=== PATIENT | female | born 1990 | race African-American/Black ===

== ENCOUNTER 2022-05-09 21:01 | Inpatient (IN) | payer MEDICAID, OTHER ==
[~2022-05-09] VITALS: Ht 165.1 cm; Wt 125.6 kg
[~2022-05-09 21:01] MED LIST: PNV
[2022-05-09 23:11] LABS: BASOPHILS % (AUTO) 0.8 % (0.0-2.0); EOSINOPHILS % (AUTO) 1.4 % (1.0-6.0); HEMATOCRIT 44.4 % (36-46); HEMOGLOBIN 14.2 g/dL (12.0-16.0); LYMPHOCYTES # (AUTO) 1.9 K/uL (1.0-4.8); LYMPHOCYTES % (AUTO) 37.1 % (22.0-44.0); MEAN CORPUSCULAR HEMOGLOBIN 25.2 pg (26.0-34.0); MEAN CORPUSCULAR HGB CONC 31.9 G/dL (31.0-37.0); MEAN CORPUSCULAR VOLUME 79 fL (80-100); MONOCYTES # (AUTO) 0.4 K/uL (0.1-1.0); NEUTROPHILS # (AUTO) 2.7 K/uL (1.8-7.7); NEUTROPHILS % (AUTO) 52.7 % (40.0-70.0); PLATELET COUNT (AUTO) 382 K/uL (150-450); RED BLOOD CELL COUNT(AUTO) 5.62 MIL/uL (4.00-5.20); RED CELL DISTRIBUTION WIDTH 17.2 % (11.5-14.5)
[2022-05-09 23:14] LABS: COVID AG,FIA SOURCE NASAL SWAB
[2022-05-09 23:20] LABS: ANION GAP 10 mmol/L (8-16); CALCIUM, TOTAL 9.3 mg/dL (8.8-10.5); CARBON DIOXIDE 27 mmol/L (22-29); CHLORIDE 105 mmol/L (98-107); CREATININE 0.81 mg/dL (0.60-1.30); GLUCOSE,RANDOM 115 mg/dL (70-110); POTASSIUM 3.3 mmol/L (3.5-5.1); SODIUM SERUM 142 mmol/L (136-145); UREA NITROGEN, BLOOD 10 mg/dL (7-18)
[2022-05-09 23:21] LABS: GLOMERULAR FILTR. RATE CALC > 60 mL/min (>60)
[2022-05-09 23:29] LABS: B-TYPE NATRIURETIC PEPTIDE 312 pg/mL (0-100)
[2022-05-09 23:37] LABS: ALANINE AMINOTRANSFERASE 34 U/L (12-78); ALBUMIN 2.6 g/dL (3.4-5.0); ALKALINE PHOSPHATASE 221 U/L (46-116); ASPARTATE AMINOTRANSFERASE 34 U/L (15-37); BILIRUBIN,TOTAL 1.4 mg/dL (0.1-1.0); HCG,QUANTITATIVE < 1 mIU/mL (0-6); TOTAL PROTEIN, SERUM 6.8 g/dL (6.4-8.2)
[2022-05-10] MEDS ORDERED: LABETALOL HCL 5 MG/ML 20 ML VIAL IVP ONE
[2022-05-10] MEDS ORDERED: NITROGLYCERIN 2% (1 GM=INCH) PACKET TP ONE
[2022-05-10] MEDS ORDERED: IOHEXOL 350 MG/ML 150 ML VIAL ONE (00:01)
[2022-05-10] MEDS ORDERED: SODIUM CHLORIDE 0.9% 0 ML ONE (00:01)
[2022-05-10] MEDS ORDERED: POTASSIUM CHLORIDE 20 MEQ ER TABLET PO ONE (00:15)
[2022-05-10] MEDS ORDERED: ACETAMINOPHEN 325 MG TABLET PO PRN (00:30)
[2022-05-10] MEDS ORDERED: ONDANSETRON HCL 4 MG/2 ML VIAL IVP PRN (00:30)
[2022-05-10] MEDS ORDERED: POTASSIUM CHLORIDE 10% 40 MEQ/30 ML LIQUID UDCUP PO ONE (00:30)
[2022-05-10] MEDS ORDERED: LORazepam 2 MG TABLET PO PRN (00:30)
[2022-05-10] MEDS: NiCARDipine HCL 25 MG in DEXTROSE 5%-WATER 240 ML IV PRN ×3 (01:55→20:45)
[2022-05-10 04:00] VITALS: BP 141/78
[2022-05-10 08:00] VITALS: BP 142/75
[2022-05-10] MEDS ORDERED: CARVEDILOL 3.125 MG TABLET PO SCH (09:00)
[2022-05-10] MEDS ORDERED: ETHYL ALCOHOL 62% ANTISEPTIC NASAL SANITIZER 0.6 ML AMPUL NASAL SCH (09:00)
[2022-05-10] MEDS ORDERED: POTASSIUM CHL 10 MEQ/WATER 50 ML IV PRN (09:00)
[2022-05-10] MEDS: MULTIVITAMINS WITH MINERALS, THERAPEUTIC TABLET PO SCH (09:03)
[2022-05-10] MEDS: ETHYL ALCOHOL 62% ANTISEPTIC NASAL SANITIZER 0.6 ML AMPUL NASAL SCH ×2 (09:04→20:44)
[2022-05-10] MEDS ORDERED: FUROSEMIDE 40 MG/4 ML VIAL IVP ONE ×2 (10:45)
[2022-05-10] MEDS ORDERED: IOHEXOL 350 MG/ML 100 ML VIAL ONE (10:49)
[2022-05-10] MEDS ORDERED: SODIUM CHLORIDE 0.9% 100 ML ONE (10:49)
[2022-05-10] MEDS: HEPARIN SODIUM,PORCINE 5,000 UNITS/ML VIAL SQ SCH (11:13)
[2022-05-10 12:00] VITALS: BP 132/72
[2022-05-10 12:36] LABS: BILIRUBIN,URINE NEGATIVE (NEGATIVE); GLUCOSE, URINE (UA) TRACE mg/dL (NEGATIVE); KETONES,URINE NEGATIVE (NEGATIVE); LEUKOCYTE ESTERASE ,URINE MODERATE (NEGATIVE); NITRATE,URINE NEGATIVE (NEGATIVE); OCCULT BLOOD,URINE SMALL (NEGATIVE); PROTEIN,URINE 30-70 mg/dL (NEGATIVE); SPECIFIC GRAVITIY, URINE 1.014 (1.003-1.030); UROBILINOGEN,URINE <=1.0 mg/dL (<=1.0)
[2022-05-10 12:39] LABS: APPEARANCE,URINE HAZY (CLEAR)
[2022-05-10 12:40] LABS: BACTERIA,URINE Few /HPF (None Seen)
[2022-05-10 12:49] LABS: AMPHET/METH SCREEN,URINE NEGATIVE (NEGATIVE); BARBITURATE SCREEN, URINE NEGATIVE (NEGATIVE); BENZODIAZEPINES SCREEN,URINE NEGATIVE (NEGATIVE); CANNABINOID SCREEN,URINE NEGATIVE (NEGATIVE); COCAINE SCREEN,URINE NEGATIVE (NEGATIVE); METHADONE SCREEN, URINE NEGATIVE (NEGATIVE); OPIATE SCREEN,URINE NEGATIVE (NEGATIVE)
[2022-05-10 12:58] LABS: PHENCYCLIDINE SCREEN,URINE NEGATIVE (NEGATIVE)
[2022-05-10 16:00] VITALS: BP 162/73
[2022-05-10 20:00] VITALS: BP 157/101
[2022-05-10] MEDS: PIPERACILLIN/TAZO 3.375 GM/D5W 50 ML IV SCH (20:44)
[2022-05-10] MEDS: CARVEDILOL 6.25 MG TABLET PO SCH (20:44)
[2022-05-10] MEDS ORDERED: SODIUM CHLORIDE 0.9% 250 ML IV ONE (21:09)
[2022-05-11] VITALS: BP 130/74
[2022-05-11] MEDS: HEPARIN SODIUM,PORCINE 5,000 UNITS/ML VIAL SQ SCH ×3 (00:33→16:25)
[2022-05-11] MEDS: NiCARDipine HCL 25 MG in DEXTROSE 5%-WATER 240 ML IV PRN (00:49)
[2022-05-11] MEDS: PIPERACILLIN/TAZO 3.375 GM/D5W 50 ML IV SCH ×4 (02:33→20:40)
[2022-05-11 04:00] VITALS: BP 139/78
[2022-05-11] MEDS ORDERED: LORazepam 2 MG TABLET PO PRN (07:00)
[2022-05-11 08:00] VITALS: BP 137/90
[2022-05-11 08:10] LABS: BASOPHILS % (AUTO) 1.3 % (0.0-2.0); EOSINOPHILS % (AUTO) 1.4 % (1.0-6.0); HEMATOCRIT 39.5 % (36-46); HEMOGLOBIN 12.9 g/dL (12.0-16.0); LYMPHOCYTES # (AUTO) 1.8 K/uL (1.0-4.8); LYMPHOCYTES % (AUTO) 36.1 % (22.0-44.0); MEAN CORPUSCULAR HEMOGLOBIN 25.5 pg (26.0-34.0); MEAN CORPUSCULAR HGB CONC 32.6 G/dL (31.0-37.0); MEAN CORPUSCULAR VOLUME 78 fL (80-100); MONOCYTES # (AUTO) 0.5 K/uL (0.1-1.0); MONOCYTES % (AUTO) 8.9 % (2.0-9.0); NEUTROPHILS # (AUTO) 2.7 K/uL (1.8-7.7); NEUTROPHILS % (AUTO) 52.3 % (40.0-70.0); PLATELET COUNT (AUTO) 366 K/uL (150-450); RED BLOOD CELL COUNT(AUTO) 5.06 MIL/uL (4.00-5.20); RED CELL DISTRIBUTION WIDTH 16.4 % (11.5-14.5)
[2022-05-11 08:30] LABS: ALANINE AMINOTRANSFERASE 28 U/L (12-78); ALBUMIN 2.3 g/dL (3.4-5.0); ALKALINE PHOSPHATASE 181 U/L (46-116); ANION GAP 11 mmol/L (8-16); ASPARTATE AMINOTRANSFERASE 31 U/L (15-37); BILIRUBIN,TOTAL 1.5 mg/dL (0.1-1.0); CALCIUM, TOTAL 8.9 mg/dL (8.8-10.5); CARBON DIOXIDE 25 mmol/L (22-29); CHLORIDE 103 mmol/L (98-107); CREATININE 0.82 mg/dL (0.60-1.30); GLUCOSE,RANDOM 135 mg/dL (70-110); PHOSPHORUS 4.1 mg/dL (2.5-4.9); POTASSIUM 3.5 mmol/L (3.5-5.1); SODIUM SERUM 139 mmol/L (136-145); TOTAL PROTEIN, SERUM 6.2 g/dL (6.4-8.2); UREA NITROGEN, BLOOD 12 mg/dL (7-18)
[2022-05-11 08:32] LABS: GLOMERULAR FILTR. RATE CALC > 60 mL/min (>60)
[2022-05-11] MEDS: CARVEDILOL 6.25 MG TABLET PO SCH ×2 (08:55→20:41)
[2022-05-11] MEDS: ETHYL ALCOHOL 62% ANTISEPTIC NASAL SANITIZER 0.6 ML AMPUL NASAL SCH ×2 (08:55→20:41)
[2022-05-11] MEDS: MULTIVITAMINS WITH MINERALS, THERAPEUTIC TABLET PO SCH (08:55)
[2022-05-11] MEDS: LORazepam 2 MG TABLET PO SCH ×4 (08:55→20:41)
[2022-05-11] MEDS: POTASSIUM CHLORIDE 20 MEQ ER TABLET PO PRN (08:55)
[2022-05-11] MEDS ORDERED: MEBROFENIN TC99M/MCL ISOTOPE 1 EA INJ INJ ONE (10:25)
[2022-05-11] MEDS: FUROSEMIDE 40 MG/4 ML VIAL IVP SCH ×2 (11:20→20:40)
[2022-05-11] MEDS: AmLODIPine BESYLATE 5 MG TABLET PO SCH (11:20)
[2022-05-11] MEDS: MORPHINE SULFATE 2 MG/ML SYRINGE IVP ONE ×2 (11:21→11:26)
[2022-05-11 12:00] VITALS: BP 149/87
[2022-05-11] MEDS ORDERED: PERFLUTREN PROTEIN-A MICROSPHERES 0.22 MG/ML 3 ML VIAL IVP ONE (12:30)
[2022-05-11 16:00] VITALS: BP 155/75
[2022-05-11 21:45] VITALS: BP 155/111
[2022-05-12] VITALS (7 sets, daily range): BP systolic 109–174; BP diastolic 76–109
[2022-05-12] MEDS: HEPARIN SODIUM,PORCINE 5,000 UNITS/ML VIAL SQ SCH ×3 (00:52→16:16)
[2022-05-12] MEDS: PIPERACILLIN/TAZO 3.375 GM/D5W 50 ML IV SCH ×4 (02:01→20:56)
[2022-05-12 05:43] LABS: BASOPHILS % (AUTO) 0.7 % (0.0-2.0); HEMATOCRIT 39.8 % (36-46); HEMOGLOBIN 13.1 g/dL (12.0-16.0); LYMPHOCYTES # (AUTO) 1.6 K/uL (1.0-4.8); LYMPHOCYTES % (AUTO) 33.1 % (22.0-44.0); MEAN CORPUSCULAR HEMOGLOBIN 25.6 pg (26.0-34.0); MEAN CORPUSCULAR HGB CONC 32.8 G/dL (31.0-37.0); MEAN CORPUSCULAR VOLUME 78 fL (80-100); MONOCYTES # (AUTO) 0.5 K/uL (0.1-1.0); MONOCYTES % (AUTO) 9.9 % (2.0-9.0); NEUTROPHILS # (AUTO) 2.6 K/uL (1.8-7.7); NEUTROPHILS % (AUTO) 54.3 % (40.0-70.0); PLATELET COUNT (AUTO) 334 K/uL (150-450); RED CELL DISTRIBUTION WIDTH 16.6 % (11.5-14.5)
[2022-05-12 06:05] LABS: ALANINE AMINOTRANSFERASE 33 U/L (12-78); ALBUMIN 2.3 g/dL (3.4-5.0); ALKALINE PHOSPHATASE 202 U/L (46-116); ANION GAP 13 mmol/L (8-16); ASPARTATE AMINOTRANSFERASE 33 U/L (15-37); BILIRUBIN,TOTAL 1.4 mg/dL (0.1-1.0); CALCIUM, TOTAL 9.2 mg/dL (8.8-10.5); CARBON DIOXIDE 27 mmol/L (22-29); CHLORIDE 102 mmol/L (98-107); CREATININE 0.97 mg/dL (0.60-1.30); GLUCOSE,RANDOM 119 mg/dL (70-110); POTASSIUM 3.4 mmol/L (3.5-5.1); SODIUM SERUM 142 mmol/L (136-145); TOTAL PROTEIN, SERUM 6.4 g/dL (6.4-8.2); UREA NITROGEN, BLOOD 13 mg/dL (7-18)
[2022-05-12 06:08] LABS: GLOMERULAR FILTR. RATE CALC > 60 mL/min (>60)
[2022-05-12] MEDS: FUROSEMIDE 40 MG/4 ML VIAL IVP SCH ×2 (08:57→20:56)
[2022-05-12] MEDS: ETHYL ALCOHOL 62% ANTISEPTIC NASAL SANITIZER 0.6 ML AMPUL NASAL SCH ×2 (08:57→20:56)
[2022-05-12] MEDS: AmLODIPine BESYLATE 5 MG TABLET PO SCH (08:57)
[2022-05-12] MEDS: MULTIVITAMINS WITH MINERALS, THERAPEUTIC TABLET PO SCH (08:57)
[2022-05-12] MEDS: CARVEDILOL 12.5 MG TABLET PO SCH ×2 (08:57→20:56)
[2022-05-12] MEDS: LORazepam 2 MG TABLET PO SCH ×4 (08:57→20:56)
[2022-05-12] MEDS: LOSARTAN POTASSIUM 25 MG TABLET PO SCH (08:58)
[2022-05-12] MEDS: POTASSIUM CHLORIDE 20 MEQ ER TABLET PO PRN (12:57)
[2022-05-12] MEDS ORDERED: SODIUM CHLORIDE 0.9% 250 ML IV ONE (20:25)
[2022-05-13 00:22] VITALS: BP 172/117
[2022-05-13] MEDS: HydrALAZINE HCL 20 MG/ML VIAL IVP PRN ×2 (00:35→14:09)
[2022-05-13] MEDS: PIPERACILLIN/TAZO 3.375 GM/D5W 50 ML IV SCH ×4 (02:00→20:43)
[2022-05-13 04:42] VITALS: BP 148/103
[2022-05-13] MEDS ORDERED: LORazepam 1 MG TABLET PO PRN ×2 (07:00→13:00)
[2022-05-13] MEDS ORDERED: LORazepam 1 MG TABLET PO SCH (09:00)
[2022-05-13] MEDS: FUROSEMIDE 40 MG/4 ML VIAL IVP SCH ×2 (10:01→20:43)
[2022-05-13] MEDS: CARVEDILOL 12.5 MG TABLET PO SCH ×2 (10:01→20:43)
[2022-05-13] MEDS: AmLODIPine BESYLATE 5 MG TABLET PO SCH (10:01)
[2022-05-13] MEDS: MULTIVITAMINS WITH MINERALS, THERAPEUTIC TABLET PO SCH (10:01)
[2022-05-13] MEDS: LOSARTAN POTASSIUM 25 MG TABLET PO SCH (10:02)
[2022-05-13 10:04] VITALS: BP 134/95
[2022-05-13] MEDS: HEPARIN SODIUM,PORCINE 5,000 UNITS/ML VIAL SQ SCH ×3 (10:08→16:00)
[2022-05-13] MEDS: ETHYL ALCOHOL 62% ANTISEPTIC NASAL SANITIZER 0.6 ML AMPUL NASAL SCH ×2 (10:22→20:43)
[2022-05-13 13:11] VITALS: BP 184/100
[2022-05-13 16:04] VITALS: BP 141/68
[2022-05-13 20:52] VITALS: BP 125/67
[2022-05-14 01:06] VITALS: BP 139/85
[2022-05-14] MEDS: PIPERACILLIN/TAZO 3.375 GM/D5W 50 ML IV SCH ×4 (02:47→20:33)
[2022-05-14 05:30] VITALS: BP 149/93
[2022-05-14] MEDS ORDERED: LORazepam 1 MG TABLET PO PRN (07:00)
[2022-05-14 08:13] VITALS: BP 173/86
[2022-05-14] MEDS: AmLODIPine BESYLATE 5 MG TABLET PO SCH (08:16)
[2022-05-14] MEDS: LOSARTAN POTASSIUM 25 MG TABLET PO SCH (08:16)
[2022-05-14] MEDS: CARVEDILOL 12.5 MG TABLET PO SCH ×2 (08:16→20:34)
[2022-05-14] MEDS: MULTIVITAMINS WITH MINERALS, THERAPEUTIC TABLET PO SCH (08:16)
[2022-05-14] MEDS: HEPARIN SODIUM,PORCINE 5,000 UNITS/ML VIAL SQ SCH ×4 (08:16→23:57)
[2022-05-14] MEDS: FUROSEMIDE 40 MG/4 ML VIAL IVP SCH ×2 (08:17→20:34)
[2022-05-14] MEDS ORDERED: ChlordiazePOXIDE HCL 10 MG CAPSULE PO SCH ×2 (09:00→21:00)
[2022-05-14 09:03] VITALS: BP 133/82
[2022-05-14] MEDS: ETHYL ALCOHOL 62% ANTISEPTIC NASAL SANITIZER 0.6 ML AMPUL NASAL SCH ×2 (09:17→20:34)
[2022-05-14 12:00] VITALS: BP 142/80
[2022-05-14 20:45] VITALS: BP 156/119
[2022-05-15] MEDS ORDERED: SODIUM CHLORIDE 0.9% 500 ML IV ONE (02:24)
[2022-05-15] MEDS: PIPERACILLIN/TAZO 3.375 GM/D5W 50 ML IV SCH ×4 (02:37→20:23)
[2022-05-15 04:11] VITALS: BP 146/93
[2022-05-15 06:39] LABS: ANION GAP 11 mmol/L (8-16); CALCIUM, TOTAL 9.2 mg/dL (8.8-10.5); CARBON DIOXIDE 27 mmol/L (22-29); CHLORIDE 101 mmol/L (98-107); CREATININE 1.01 mg/dL (0.60-1.30); GLUCOSE,RANDOM 111 mg/dL (70-110); POTASSIUM 3.5 mmol/L (3.5-5.1); SODIUM SERUM 139 mmol/L (136-145); UREA NITROGEN, BLOOD 17 mg/dL (7-18)
[2022-05-15 06:48] LABS: GLOMERULAR FILTR. RATE CALC > 60 mL/min (>60)
[2022-05-15 07:14] VITALS: BP 163/90
[2022-05-15] MEDS: CARVEDILOL 12.5 MG TABLET PO SCH ×2 (08:08→20:22)
[2022-05-15] MEDS: HEPARIN SODIUM,PORCINE 5,000 UNITS/ML VIAL SQ SCH ×3 (08:09→23:53)
[2022-05-15] MEDS: MULTIVITAMINS WITH MINERALS, THERAPEUTIC TABLET PO SCH (08:09)
[2022-05-15] MEDS: FUROSEMIDE 40 MG/4 ML VIAL IVP SCH ×2 (08:10→20:23)
[2022-05-15] MEDS: AmLODIPine BESYLATE 5 MG TABLET PO SCH (08:10)
[2022-05-15] MEDS: LOSARTAN POTASSIUM 25 MG TABLET PO SCH (08:16)
[2022-05-15 09:24] LABS: BASOPHILS % (AUTO) 1.1 % (0.0-2.0); EOSINOPHILS % (AUTO) 2.3 % (1.0-6.0); HEMATOCRIT 39.3 % (36-46); HEMOGLOBIN 12.9 g/dL (12.0-16.0); LYMPHOCYTES # (AUTO) 1.7 K/uL (1.0-4.8); LYMPHOCYTES % (AUTO) 30.9 % (22.0-44.0); MEAN CORPUSCULAR HEMOGLOBIN 25.6 pg (26.0-34.0); MEAN CORPUSCULAR HGB CONC 32.9 G/dL (31.0-37.0); MEAN CORPUSCULAR VOLUME 78 fL (80-100); MONOCYTES # (AUTO) 0.8 K/uL (0.1-1.0); MONOCYTES % (AUTO) 13.4 % (2.0-9.0); NEUTROPHILS # (AUTO) 2.9 K/uL (1.8-7.7); NEUTROPHILS % (AUTO) 52.3 % (40.0-70.0); PLATELET COUNT (AUTO) 327 K/uL (150-450); RED BLOOD CELL COUNT(AUTO) 5.05 MIL/uL (4.00-5.20); RED CELL DISTRIBUTION WIDTH 16.1 % (11.5-14.5)
[2022-05-15] MEDS: ETHYL ALCOHOL 62% ANTISEPTIC NASAL SANITIZER 0.6 ML AMPUL NASAL SCH ×2 (09:49→20:22)
[2022-05-15 11:30] VITALS: BP 132/89
[2022-05-15 16:12] VITALS: BP 138/97
[2022-05-15 20:13] VITALS: BP 150/102
[2022-05-15 23:58] VITALS: BP 150/101
[2022-05-16] MEDS: PIPERACILLIN/TAZO 3.375 GM/D5W 50 ML IV SCH ×4 (02:26→20:12)
[2022-05-16 05:11] VITALS: BP 153/96
[2022-05-16 06:36] LABS: BASOPHILS % (AUTO) 1.2 % (0.0-2.0); HEMATOCRIT 38.6 % (36-46); HEMOGLOBIN 12.6 g/dL (12.0-16.0); LYMPHOCYTES # (AUTO) 1.5 K/uL (1.0-4.8); LYMPHOCYTES % (AUTO) 29.2 % (22.0-44.0); MEAN CORPUSCULAR HEMOGLOBIN 25.5 pg (26.0-34.0); MEAN CORPUSCULAR HGB CONC 32.6 G/dL (31.0-37.0); MEAN CORPUSCULAR VOLUME 78 fL (80-100); MONOCYTES # (AUTO) 0.6 K/uL (0.1-1.0); MONOCYTES % (AUTO) 12.1 % (2.0-9.0); NEUTROPHILS # (AUTO) 2.9 K/uL (1.8-7.7); NEUTROPHILS % (AUTO) 55.5 % (40.0-70.0); PLATELET COUNT (AUTO) 326 K/uL (150-450); RED BLOOD CELL COUNT(AUTO) 4.93 MIL/uL (4.00-5.20); RED CELL DISTRIBUTION WIDTH 16.4 % (11.5-14.5)
[2022-05-16 06:54] LABS: ANION GAP 11 mmol/L (8-16); CARBON DIOXIDE 28 mmol/L (22-29); CHLORIDE 100 mmol/L (98-107); CREATININE 0.97 mg/dL (0.60-1.30); GLUCOSE,RANDOM 118 mg/dL (70-110); SODIUM SERUM 139 mmol/L (136-145); UREA NITROGEN, BLOOD 14 mg/dL (7-18)
[2022-05-16 06:55] LABS: GLOMERULAR FILTR. RATE CALC > 60 mL/min (>60)
[2022-05-16 07:43] VITALS: BP 144/86
[2022-05-16] MEDS ORDERED: SODIUM CHLORIDE 0.9% 250 ML IV ONE (08:34)
[2022-05-16] MEDS: FUROSEMIDE 40 MG/4 ML VIAL IVP SCH ×2 (09:08→20:10)
[2022-05-16] MEDS: HEPARIN SODIUM,PORCINE 5,000 UNITS/ML VIAL SQ SCH ×2 (09:08→15:19)
[2022-05-16] MEDS: ETHYL ALCOHOL 62% ANTISEPTIC NASAL SANITIZER 0.6 ML AMPUL NASAL SCH ×2 (09:08→20:11)
[2022-05-16] MEDS: CARVEDILOL 12.5 MG TABLET PO SCH (09:08)
[2022-05-16] MEDS: MULTIVITAMINS WITH MINERALS, THERAPEUTIC TABLET PO SCH (09:09)
[2022-05-16] MEDS: AmLODIPine BESYLATE 5 MG TABLET PO SCH (09:09)
[2022-05-16] MEDS: LOSARTAN POTASSIUM 25 MG TABLET PO SCH (09:09)
[2022-05-16] MEDS: POTASSIUM CHLORIDE 20 MEQ ER TABLET PO PRN ×2 (09:10→17:01)
[2022-05-16 11:18] VITALS: BP 139/86
[2022-05-16 15:36] VITALS: BP 136/109
[2022-05-16] MEDS: SPIRONOLACTONE 25 MG TABLET PO SCH (17:01)
[2022-05-16 20:10] VITALS: BP 144/96
[2022-05-16] MEDS: CARVEDILOL 25 MG TABLET PO SCH (20:11)
[2022-05-16 23:30] VITALS: BP 153/95
[2022-05-17] MEDS: HEPARIN SODIUM,PORCINE 5,000 UNITS/ML VIAL SQ SCH ×3 (00:54→16:00)
[2022-05-17] MEDS: PIPERACILLIN/TAZO 3.375 GM/D5W 50 ML IV SCH ×3 (01:00→14:00)
[2022-05-17 03:30] VITALS: BP 144/77
[2022-05-17 06:02] LABS: BASOPHILS % (AUTO) 1.1 % (0.0-2.0); EOSINOPHILS % (AUTO) 1.8 % (1.0-6.0); HEMATOCRIT 37.9 % (36-46); HEMOGLOBIN 12.3 g/dL (12.0-16.0); LYMPHOCYTES # (AUTO) 1.5 K/uL (1.0-4.8); LYMPHOCYTES % (AUTO) 27.7 % (22.0-44.0); MEAN CORPUSCULAR HEMOGLOBIN 25.3 pg (26.0-34.0); MEAN CORPUSCULAR HGB CONC 32.4 G/dL (31.0-37.0); MEAN CORPUSCULAR VOLUME 78 fL (80-100); MONOCYTES # (AUTO) 0.6 K/uL (0.1-1.0); MONOCYTES % (AUTO) 11.8 % (2.0-9.0); NEUTROPHILS # (AUTO) 3.1 K/uL (1.8-7.7); NEUTROPHILS % (AUTO) 57.6 % (40.0-70.0); PLATELET COUNT (AUTO) 320 K/uL (150-450); RED BLOOD CELL COUNT(AUTO) 4.87 MIL/uL (4.00-5.20); RED CELL DISTRIBUTION WIDTH 16.5 % (11.5-14.5)
[2022-05-17 07:29] LABS: ANION GAP 12 mmol/L (8-16); CALCIUM, TOTAL 8.9 mg/dL (8.8-10.5); CARBON DIOXIDE 26 mmol/L (22-29); CHLORIDE 101 mmol/L (98-107); CREATININE 1.05 mg/dL (0.60-1.30); GLUCOSE,RANDOM 113 mg/dL (70-110); POTASSIUM 3.3 mmol/L (3.5-5.1); SODIUM SERUM 139 mmol/L (136-145); UREA NITROGEN, BLOOD 13 mg/dL (7-18)
[2022-05-17 07:31] LABS: GLOMERULAR FILTR. RATE CALC > 60 mL/min (>60)
[2022-05-17 07:50] VITALS: BP 148/80
[2022-05-17] MEDS: MULTIVITAMINS WITH MINERALS, THERAPEUTIC TABLET PO SCH (08:12)
[2022-05-17] MEDS: SPIRONOLACTONE 25 MG TABLET PO SCH (08:12)
[2022-05-17] MEDS: POTASSIUM CHLORIDE 20 MEQ ER TABLET PO PRN ×2 (08:12→13:24)
[2022-05-17] MEDS: LOSARTAN POTASSIUM 25 MG TABLET PO SCH (08:12)
[2022-05-17] MEDS: ETHYL ALCOHOL 62% ANTISEPTIC NASAL SANITIZER 0.6 ML AMPUL NASAL SCH (08:12)
[2022-05-17] MEDS: FUROSEMIDE 40 MG/4 ML VIAL IVP SCH (08:13)
[2022-05-17] MEDS: AmLODIPine BESYLATE 5 MG TABLET PO SCH (08:13)
[2022-05-17] MEDS: CARVEDILOL 25 MG TABLET PO SCH (08:13)
[2022-05-17 11:12] VITALS: BP 128/65
[2022-05-17] MEDS ORDERED: CARV25 PO ×2 (12:04→13:52)
[2022-05-17] MEDS ORDERED: AMLO-257 PO ×2 (12:04→13:52)
[2022-05-17] MEDS ORDERED: CHLO5CAP4 PO ×3 (12:06→13:52)
[2022-05-17] MEDS ORDERED: FURO40 PO ×2 (13:34→13:52)
[2022-05-17] MEDS ORDERED: LOSA-381 PO ×2 (13:38→13:52)
[2022-05-17] MEDS ORDERED: SPIR-37 PO ×2 (13:39→13:52)
[2022-05-17] MEDS ORDERED: MULT-660 PO (13:39)
[2022-05-17] MEDS ORDERED: POTA8TAB71 PO (14:30)
[2022-05-17 15:51] VITALS: BP 157/92
[2022-05-17] MEDS ORDERED: FUROSEMIDE 40 MG TABLET PO SCH (21:00)
[2022-05-18] MEDS ORDERED: SPIRONOLACTONE 25 MG TABLET PO SCH (09:00)
== END 2022-05-17 17:30 | disposition home or self-care (01) | DRG 133 ==
LOC: EMS 21:22 → ICU 05-10 01:44 → 5S 05-12 17:15
PROVIDERS: ADMIT Internal Medicine; ATTEND Internal Medicine
DX: J96.01 Acute respiratory failure with hypoxia (principal); I50.43 Acute on chronic combined systolic (congestive) and diastolic (congestive) heart failure; I31.3 Pericardial effusion (noninflammatory); I27.20 Pulmonary hypertension, unspecified; N18.6 End stage renal disease; I50.813 Acute on chronic right heart failure; I16.0 Hypertensive urgency; I13.2 Hypertensive heart and chronic kidney disease with heart failure and with stage 5 chronic kidney disease, or end stage renal disease; E11.22 Type 2 diabetes mellitus with diabetic chronic kidney disease; E66.01 Morbid (severe) obesity due to excess calories; E87.6 Hypokalemia; I16.1 Hypertensive emergency; I07.1 Rheumatic tricuspid insufficiency; Z20.822 Contact with and (suspected) exposure to COVID-19; F15.10 Other stimulant abuse, uncomplicated; F17.210 Nicotine dependence, cigarettes, uncomplicated; N39.0 Urinary tract infection, site not specified; I50.82 Biventricular heart failure; F10.20 Alcohol dependence, uncomplicated; Y90.9 Presence of alcohol in blood, level not specified; Z91.010 Allergy to peanuts; Z68.42 Body mass index [BMI] 45.0-49.9, adult
CPT/HCPCS: 71045; 71250; 71275; 76700; 78226; 80048; 80053; 80307; 81001; 83036; 83735; 83880; 84100; 84132; 84484; 84702; 85025; 85379; 87081; 87086; 93005; 93306; 93970; 94660; 97116; 97162; 97530; 99291; A9537; C8924; G0378; J0360; J1644; J1940; J2270; J2543; J3490; J7040; J7050; J7060; Q9967; 36415-L1; 36415-TC